=== PATIENT | female | born 1975 | race Two or more races ===

== ENCOUNTER 2023-12-03 06:10 | Inpatient (IN) | payer BC ==
[~2023-12-03] VITALS: Ht 162.6 cm; Wt 76.5 kg
[~2023-12-03 06:10] MED LIST: LEVO-848 PO; PROG200C21 PO
[2023-12-03] MEDS: ceFAZolin 2 GM/D5W50ml 50 ML IV ONE (06:53)
[2023-12-03] MEDS ORDERED: METOCLOPRAMIDE HCL 5MG/ml INJ 2ml VIAL IV PRN (07:00)
[2023-12-03] MEDS ORDERED: fentaNYL CITRATE 100 MCG/2 ML VL IV PRN (07:00)
[2023-12-03] MEDS ORDERED: HYDROmorphone HCL 2 MG/ML VL/or syr IV PRN ×2 (07:00)
[2023-12-03] MEDS: KETOROLAC TROMETH 30 MG/ML 1ML VIAL IV ONE (07:00)
[2023-12-03] MEDS: METHYLENE BLUE 0.5% 5MG/ML 10ml AMP IV ONE ×2 (07:01→08:58)
[2023-12-03] MEDS: LIDOCAINE 1% HCL (LOCAL ANESTH.) INJ 20ML MDV ONE (07:02)
[2023-12-03] MEDS: DOXAPRAM HCL 20 MG/ML 20ML VIAL INJ IV ONE (07:06)
[2023-12-03] MEDS: ROCURONIUM 10MG/ML 10ML VIAL IV ONE (07:07)
[2023-12-03] MEDS: SUCCINYLCHOLINE CHLORIDE 20 MG/ML 10ML VIAL IV ONE (07:07)
[2023-12-03] MEDS ORDERED: fentaNYL CITRATE 100 MCG/2 ML VL ONE ×2 (07:12→09:42)
[2023-12-03] MEDS ORDERED: MIDAZOLAM HCL 2MG/2ML 2ml VIAL (1mg/ml) ONE (07:12)
[2023-12-03] MEDS ORDERED: fentaNYL CITRATE 5 ML ONE (07:13)
[2023-12-03] MEDS ORDERED: DexAMETHasone SOD PHOS 10MG/1ML VIAL INJ ONE (07:13)
[2023-12-03] MEDS ORDERED: ONDANSETRON HCL 4 MG/2 ML VIAL ONE (07:13)
[2023-12-03] MEDS ORDERED: NEOSTIGMINE 1 MG/ML INJ (10mg/10ML VIAL) ONE (07:13)
[2023-12-03] MEDS ORDERED: PROPOFOL 10 MG/ML 20 ML IV ONE (07:13)
[2023-12-03] MEDS ORDERED: MEPERIDINE HCL (25 MG/ML) 1ML VIAL ONE (07:13)
[2023-12-03] MEDS ORDERED: SODIUM CHLORIDE LOCK 10 ML ONE (07:13)
[2023-12-03] MEDS ORDERED: GLYCOPYRROLATE 0.2 MG/ML 1ML VIAL ONE (07:13)
[2023-12-03] MEDS ORDERED: KETAMINE 50mg/ML 1ml syringe ONE (07:13)
[2023-12-03] MEDS ORDERED: LIDOCAINE HCL 2% TOP JELLY 5ML TOP ONE (07:13)
[2023-12-03] MEDS ORDERED: LIDOCAINE 1% INJ PF 5ML AMP ONE (07:13)
[2023-12-03] MEDS ORDERED: ONDANSETRON HCL 4 MG/2 ML VIAL IV PRN (08:15)
[2023-12-03] MEDS ORDERED: HYDROcodone-ACET 5/325MG TAB PO PRN (08:15)
[2023-12-03] MEDS ORDERED: NITROGLYCERIN 0.4 MG SL TAB SL PRN ×2 (08:15)
[2023-12-03] MEDS ORDERED: MORPHINE SULFATE INJ 2 MG/ml SYRG IV PRN ×2 (08:15)
[2023-12-03] MEDS: ceFAZolin 1GM/50ML 50 ML IV ONE (08:15)
[2023-12-03] MEDS: LIDOCAINE W/ EPINEPHRINE 2% INJ 20ML VIAL ONE (08:56)
[2023-12-03] MEDS: BUPIVACAINE 0.25% INJ 50ML VIAL ONE (08:58)
[2023-12-03] MEDS ORDERED: SUGAMMADEX 200mg/2ml Vial (100MG/ML) IV ONE (11:14)
[2023-12-03 11:41] VITALS: O2SAT 98
[2023-12-03 13:00] VITALS: BP 128/74; PULSE 68; RESP 20; TEMP 98.1; O2SAT 96
[2023-12-03] MEDS: SODIUM CHLORIDE 0.9% 1,000 ML IV SCH (16:15)
[2023-12-03 17:00] VITALS: BP 110/65; PULSE 100; RESP 20; TEMP 97.2; O2SAT 94
[2023-12-03 20:00] VITALS: PULSE 74
[2023-12-03] MEDS: ACETAMINOPHEN 500 MG TAB PO PRN (20:42)
[2023-12-03 21:00] VITALS: BP 110/67; PULSE 97; RESP 18; TEMP 98.4; O2SAT 96
[2023-12-04 01:00] VITALS: BP 100/57; PULSE 87; RESP 20; TEMP 98.4; O2SAT 94
[2023-12-04 05:00] VITALS: BP 105/66; PULSE 79; RESP 18; TEMP 98.6; O2SAT 94
[2023-12-04 08:00] VITALS: PULSE 86; RESP 14; O2SAT 94
[2023-12-04 09:00] VITALS: BP 103/61; PULSE 86; RESP 14; TEMP 98.3; O2SAT 94
== END 2023-12-04 09:00 | disposition home or self-care (01) | DRG 743 ==
LOC: SUR 06:10 → OVERFLOW 08:07 → EAST 12:49
PROVIDERS: ADMIT Obstetrics & Gynecology; ATTEND Obstetrics & Gynecology
PROC: 0UB78ZZ Excision of Bilateral Fallopian Tubes, Via Natural or Artificial Opening Endoscopic (ICD-10-PCS; 2023-12-03)
PROC: 8E0W8CZ Robotic Assisted Procedure of Trunk Region, Via Natural or Artificial Opening Endoscopic (ICD-10-PCS; 2023-12-03)
PROC: 0US Female Reproductive System, Reposition (ICD-10-PCS; 2023-12-03)
PROC: 0UT98ZL Resection of Uterus, Supracervical, Via Natural or Artificial Opening Endoscopic (ICD-10-PCS; principal; 2023-12-03 07:44)
DX: N81.4 Uterovaginal prolapse, unspecified (principal); Z98.891 History of uterine scar from previous surgery; Z98.51 Tubal ligation status; Z30.2 Encounter for sterilization
CPT/HCPCS: 74018; 81025; 86850; 86900; 86901; G0378; J0330; J1100; J2001; J2250; J2405; J2704; J3490